=== PATIENT | female | born 1985 | race Caucasian/White ===

== ENCOUNTER 2018-01-23 11:26 | Emergency (ER) | payer OTHER ==
[2018-01-23 11:56] VITALS: BP 113/70; PULSE 82; TEMP 99.4; BMI 37.2
--- NOTE | 2018-01-23 12:41 | PDOC ---
History of Present Illness - General Chief Complaint: Back Pain Stated Complaint: BACK PAIN Time Seen by Provider: 01/23/18 12:22 History Source: Patient Exam Limitations: No Limitations - History of Present Illness Initial Comments: 01/23/18 13:03 32 yr female with c/o right flank pain for 2 days with painful urination. no fever no chills positive nausea, neg vomiting or diarrhea. Pt has history of kidney stones denies any trauma . Past History - Past Medical History Allergies/Adverse Reactions: Allergies Allergy/AdvReac Type Severity Reaction Status Date / Time No Known Allergies Allergy Verified 01/23/18 12:35 Home Medications: Ambulatory Orders Cyclobenzaprine HCl [Flexeril -] 10 mg PO TID PRN #15 tablet 01/23/18 Naproxen [Naprosyn] 500 mg PO BID PRN #14 tablet 01/23/18 COPD: No CHF: No Kidney Stones: Yes - Surgical History Abdominal Surgery: Yes (ovarian cyst removal, ) Cholecystectomy: No - Reproductive History (#): 2 Para: 1 Cervical CA: No Dysfunctional Uterine Bleeding: No Ectopic : No Endometrial CA: No Polycystic Ovaries: No Therapeutic (s) & number: No Tubal Ligation: No Spontaneous : 1 - Immunization History Td Vaccination: Yes Immunization Up to Date: Yes - Suicide/Smoking/Psychosocial Hx Smoking Status: No Smoking History: Never smoked Have you smoked in the past 12 months: No Number of Cigarettes Smoked Daily: 0 Information on smoking cessation initiated: No Hx Alcohol Use: No Drug/Substance Use Hx: No Substance Use Type: None Hx Substance Use Treatment: No Trauma Specific PMHX - Complaint Specific PMHX Back Injury: Yes Review of Systems - Review of Systems Able to Perform ROS?: Yes Is the patient limited Urdu proficient: Yes Constitutional: No: Symptoms Reported HEENTM: No: Symptoms Reported Respiratory: No: Symptoms reported Cardiac (ROS): No: Symptoms Reported ABD/GI: No: Symptoms Reported : Yes: Flank Pain *Physical Exam - Vital Signs Last Vital Signs Temp Pulse Resp BP Pulse Ox 99.4 F 82 18 113/70 98 01/23/18 11:53 01/23/18 11:53 01/23/18 11:53 01/23/18 11:53 01/23/18 11:53 - Physical Exam General Appearance: Yes: Nourished, Appropriately Dressed HEENT: positive: EOMI, SAY Neck: positive: Supple. negative: Tender Respiratory/Chest: positive: Lungs Clear, Normal Breath Sounds. negative: Chest Tender Cardiovascular: positive: Regular Rhythm, Regular Rate Gastrointestinal/Abdominal: positive: Normal Bowel Sounds, Soft, Other (obese ) . negative: Tender Musculoskeletal: positive: Normal Inspection Extremity: positive: Normal Capillary Refill, Normal Inspection, Normal Range of Motion Integumentary: positive: Normal Color, Dry, Warm Neurologic: positive: Fully Oriented, Alert, Normal Mood/Affect, Normal Response , Motor Strength 08/04 Medical Decision Making - Medical Decision Making 01/23/18 13:08 32 yr female with c/o pain to right flank area history of stone pt with painful urination no fever no nausea or vomiting will check UA toradol for pain 01/23/18 13:09 pt improved after toradol feels much better dc home with strict follow up inst all questions asked and answered 01/23/18 17:09 *DC/Admit/Observation/Transfer Diagnosis at time of Disposition: Back pain at L4-L5 level Cyst of ovary Qualifiers: Laterality: right Qualified Code(s): N83.201 - Unspecified ovarian cyst, right side - Discharge Dispostion Disposition: HOME Condition at time of disposition: Good - Prescriptions Prescriptions: Cyclobenzaprine HCl [Flexeril -] 10 mg PO TID PRN #15 tablet PRN Reason: Muscle Spasms Naproxen [Naprosyn] 500 mg PO BID PRN #14 tablet PRN Reason: Back Pain - Referrals Referrals: Chastity Barron MD [Primary Care Provider] - - Patient Instructions Printed Discharge Instructions: DI for Low Back Pain Additional Instructions: your cat scan was normal no sign of kidney stone please follow with your primary care doctor in 2-3 days if symptoms do not improve with the medication drink pleanty of fluids to stay hydrated return to ER if any worsening symptoms take the medications as prescribed for pain or muscle spasm Por favor, siga con meade mdico de atencin primaria en 2-3 drummond si los sntomas no mejoran con el medicamento. Beber abundantes lquidos para mantenerse hidratado. volver a la althea de emergencias si hay sntomas de empeoramiento pat los medicamentos segn lo prescrito para el dolor o espasmo muscular Meade escner de jocy fue normal, no hay signos de clculos renales Print Language: LAO - Post Discharge Activity Forms/Work/School Notes: Back to Work
[2018-01-23 12:48] LABS: HCG,QUALITATIVE URINE Negative
[2018-01-23] MEDS ORDERED: KETOROLAC TROMETHAMINE 60 MG/2 ML VIAL IM ONE (12:56)
[2018-01-23 12:59] LABS: URINE APPEARANCE SLCLOUDY; URINE BILIRUBIN NEGATIVE (<2.0 mg/dL); URINE COLOR YELLOW; URINE GLUCOSE (UA) NEGATIVE (NEGATIVE); URINE KETONE NEGATIVE (NEGATIVE); URINE LEUK ESTERASE NEGATIVE (NEGATIVE); URINE NITRITE NEGATIVE (NEGATIVE); URINE PROTEIN NEGATIVE (NEGATIVE); URINE UROBILINOGEN NEGATIVE mg/dL (0.2-1.0)
[2018-01-23] MEDS ORDERED: KETOROLAC TROMETHAMINE 60 MG/2 ML VIAL ONE (13:00)
[2018-01-23 13:11] LABS: EPI CELLS MANY /HPF (FEW); URINE MUCUS RARE
== END 2018-01-23 14:15 | disposition home or self-care (01) ==
LOC: JERFT 11:26 → JER 11:26 → JERFT 14:15
PROC: 3E0233Z Introduction of Anti-inflammatory into Muscle, Percutaneous Approach (ICD-10-PCS; principal; 2018-01-23)
DX: N83.201 Unspecified ovarian cyst, right side (principal); M54.5 Low back pain
CPT/HCPCS: 74176; 81003; 81015; 84703; 87086; 87186; 99281-25

== ENCOUNTER 2019-10-29 10:47 | Emergency (ER) | payer OTHER ==
[2019-10-29 10:51] VITALS: BP 120/73; PULSE 80; TEMP 98; BMI 33.6
[2019-10-29] MEDS ORDERED: KETOROLAC TROMETHAMINE 60 MG/2 ML VIAL IM ONE (11:35)
[2019-10-29] MEDS ORDERED: KETOROLAC TROMETHAMINE 60 MG/2 ML VIAL ONE (11:37)
--- NOTE | 2019-10-29 11:42 | PDOC ---
History of Present Illness - General Chief Complaint: Pain Stated Complaint: LOWER BACK PAIN Time Seen by Provider: 10/29/19 10:58 History Source: Patient - History of Present Illness Occurred: reports: other Severity: reports: moderate Pain Location: reports: back Past History - Medical History Allergies/Adverse Reactions: Allergies Allergy/AdvReac Type Severity Reaction Status Date / Time No Known Allergies Allergy Verified 10/29/19 10:51 Home Medications: Ambulatory Orders Cyclobenzaprine HCl [Flexeril -] 10 mg PO TID PRN #15 tablet 01/23/18 Naproxen [Naprosyn] 500 mg PO BID PRN #14 tablet 01/23/18 Nitrofurantoin Monohyd/M-Cryst [Macrobid -] 100 mg PO BID #14 capsule 01/27/18 Cyclobenzaprine HCl [Flexeril 10 mg] 10 mg PO HS #9 tablet 10/29/19 Ibuprofen [Motrin -] 800 mg PO QID #30 tablet 10/29/19 COPD: No CHF: No Kidney Stones: Yes - Surgical History Abdominal Surgery: Yes (ovarian cyst removal, ) Cholecystectomy: No - Reproductive History (#): 2 Para: 1 Cervical CA: No Dysfunctional Uterine Bleeding: No Ectopic : No Endometrial CA: No Polycystic Ovaries: No Therapeutic (s) & number: No Tubal Ligation: No Spontaneous : 1 - Immunization History Td Vaccination: Yes Immunization Up to Date: Yes - Psycho-Social/Smoking History Smoking Status: No Smoking History: Never smoked Have you smoked in the past 12 months: No Number of Cigarettes Smoked Daily: 0 - Substance Abuse Hx (Audit-C & DAST Scrn) How often the patient has a drink containing alcohol: Never Score: In Men: 4 or > Positive; In Women: 3 or > Positive: 0 Screen Result (Pos requires Nsg. Audit-10AR): Negative Trauma Specific PMHX - Complaint Specific PMHX Back Injury: Yes Review of Systems - Review of Systems Constitutional: No: Chills, Fever ABD/GI: No: Nausea, Vomiting, Abdominal cramping : No: Burning, Dysuria, Flank Pain, Hematuria Musculoskeletal: Yes: Back Pain Neurological: No: Numbness, Tingling, Weakness *Physical Exam - Vital Signs Last Vital Signs Temp Pulse Resp BP Pulse Ox 98 F 80 18 120/73 97 10/29/19 10:48 10/29/19 10:48 10/29/19 10:48 10/29/19 10:48 10/29/19 10:48 - Physical Exam General Appearance: Yes: Appropriately Dressed, Mild Distress HEENT: positive: Normal Voice Neck: positive: Supple Respiratory/Chest: negative: Respiratory Distress Gastrointestinal/Abdominal: positive: Soft. negative: Tender Musculoskeletal: positive: Vertebral Tenderness (to L lower back). negative: CVA Tenderness Extremity: positive: Normal Inspection Integumentary: positive: Dry, Warm Neurologic: positive: Fully Oriented, Alert, Normal Mood/Affect, Motor Strength 5/5, Other (able to bear weight) Medical Decision Making - Medical Decision Making 10/29/19 11:52 33 yo morbidly obesed female w. recurrent low bakc pain, here w/ same. Reports diffuse lower back pain radiating to L buttocks/thigh x 5 days, achy, 6/10, worse w/ certain movements. No sensory changes, LE weakness, saddle anesthesia or B/B incontinence. No sxs, n/v/f/c. Took tylenol w/ no relief. No recent or past trauma. No neuro imaging in past see exam Recurrent LBP No red flags at this time Dc w/ pain control PMD f/u Discharge - Discharge Information Problems reviewed: Yes Clinical Impression/Diagnosis: Low back pain Qualifiers: Chronicity: acute Back pain laterality: bilateral Sciatica presence: without sciatica Qualified Code(s): M54.5 - Low back pain Condition: Good Disposition: HOME - Additional Discharge Information Prescriptions: Cyclobenzaprine HCl [Flexeril 10 mg] 10 mg PO HS #9 tablet Ibuprofen [Motrin -] 800 mg PO QID #30 tablet - Follow up/Referral - Patient Discharge Instructions Patient Printed Discharge Instructions: Low Back Pain - Post Discharge Activity
== END 2019-10-29 11:51 | disposition home or self-care (01) ==
LOC: JERFT 10:47
PROC: 3E0333Z Introduction of Anti-inflammatory into Peripheral Vein, Percutaneous Approach (ICD-10-PCS; principal; 2019-10-29)
DX: M54.5 Low back pain (principal)
CPT/HCPCS: 99284-25

== ENCOUNTER 2020-02-09 01:08 | Emergency (ER) | payer OTHER ==
[2020-02-09 01:17] VITALS: TEMP 98.8; BMI 35.4
[2020-02-09] MEDS ORDERED: LACTATED RINGERS SOLUTION 1000 ML INFUS.BAG IV ONE (01:27)
[2020-02-09] MEDS ORDERED: METOCLOPRAMIDE HCL INJECTION 10 MG/2 ML VIAL IVPB ONE (01:27)
[2020-02-09] MEDS ORDERED: METOCLOPRAMIDE HCL INJECTION 10 MG/2 ML VIAL ONE (01:44)
[2020-02-09 02:18] LABS: BASO % 0.9 % (0-2.0); EOS % 0.7 % (0-4.5); HEMATOCRIT 36.9 % (32.4-45.2); HEMOGLOBIN 12.1 GM/dL (10.7-15.3); LYMPH % 26.9 % (8-40); MCH 24.9 pg (25.7-33.7); MCHC 32.7 g/dl (32.0-36.0); MEAN PLT VOLUME 7.5 fl (7.5-11.1); MONO % 4.4 % (3.8-10.2); NEUT % 67.1 % (42.8-82.8); PLATELET COUNT 429 K/MM3 (134-434); RBC 4.85 M/mm3 (3.60-5.2); RDW 16.5 % (11.6-15.6); WHITE BLOOD COUNT 10.3 K/mm3 (4.0-10.0)
[2020-02-09 02:31] LABS: CHLORIDE 106 mmol/L (98-107); POTASSIUM 4.4 mmol/L (3.5-5.1); SODIUM 137 mmol/L (136-145)
[2020-02-09 02:33] LABS: ALBUMIN 3.6 g/dl (3.4-5.0); ANION GAP 7 MMOL/L (8-16); CALCIUM 9.2 mg/dL (8.5-10.1); CO2 24 mmol/L (21-32)
[2020-02-09 02:34] LABS: BLOOD UREA NITROGEN 11.2 mg/dL (7-18); GLUCOSE,RANDOM 105 mg/dL (74-106)
[2020-02-09 02:36] LABS: SGOT/AST 20 U/L (15-37); SGPT/ALT 25 U/L (13-61)
[2020-02-09 02:37] LABS: CREATININE 0.6 mg/dL (0.55-1.3)
[2020-02-09 02:38] LABS: BILIRUBIN,TOTAL 0.3 mg/dL (0.2-1)
[2020-02-09 02:39] LABS: ALK PHOS 117 U/L (45-117)
[2020-02-09] MEDS ORDERED: KETOROLAC TROMETHAMINE 30 MG/1 ML VIAL IVPUSH ONE (02:47)
[2020-02-09] MEDS ORDERED: KETOROLAC TROMETHAMINE 15 MG/ML VIAL ONE (02:50)
[2020-02-09 03:33] VITALS: BP 118/70; PULSE 78
== END 2020-02-09 03:33 | disposition home or self-care (01) ==
LOC: JER 01:08
PROC: 3E0333Z Introduction of Anti-inflammatory into Peripheral Vein, Percutaneous Approach (ICD-10-PCS; principal; 2020-02-09)
PROC: 3E033GC Introduction of Other Therapeutic Substance into Peripheral Vein, Percutaneous Approach (ICD-10-PCS; 2020-02-09)
DX: G44.209 Tension-type headache, unspecified, not intractable (principal)
CPT/HCPCS: 36415; 71046-TC-FY; 80053; 82550; 84484; 84703; 85025; 93005; 93010; 99285-25

== ENCOUNTER 2022-02-02 04:31 | Emergency (ER) | payer OTHER ==
[2022-02-02 04:44] VITALS: BMI 35.4
[2022-02-02] MEDS ORDERED: ACETAMINOPHEN 1000 MG/100 ML BAG IVPB ONE (05:33)
[2022-02-02] MEDS ORDERED: ACETAMINOPHEN INJECTION 100 ML IVPB ONE (05:33)
[2022-02-02 05:52] LABS: BASO % 0.8 % (0-2.0); HEMATOCRIT 36.6 % (32.4-45.2); HEMOGLOBIN 11.8 GM/dL (10.7-15.3); LYMPH % 30.6 % (8-40); MCH 24.8 pg (25.7-33.7); MCHC 32.3 g/dl (32.0-36.0); MEAN CELL VOLUME 76.7 fl (80-96); MEAN PLT VOLUME 7.3 fl (7.5-11.1); NEUT % 61.6 % (42.8-82.8); PLATELET COUNT 409 10^3/uL (134-434); RBC 4.77 M/mm3 (3.60-5.2); RDW 16.3 % (11.6-15.6); WHITE BLOOD COUNT 8.7 K/mm3 (4.0-10.0)
[2022-02-02 06:04] LABS: EPI CELLS >36 /uL (0-25.1); HCG,QUALITATIVE URINE Negative; HYALINE CASTS 0 /uL (0-3.1); PH,URINE 5.5 (5.0-8.0); URINE APPEARANCE CLEAR; URINE BACTERIA 1470 /uL (0-1359); URINE BILIRUBIN NEGATIVE (NEGATIVE); URINE COLOR YELLOW; URINE GLUCOSE (UA) NEGATIVE (NEGATIVE); URINE KETONE NEGATIVE (NEGATIVE); URINE LEUK ESTERASE 3+ (NEGATIVE); URINE NITRITE NEGATIVE (NEGATIVE); URINE PROTEIN TRACE (NEGATIVE); URINE RBC 14 /uL (0-23.9); URINE UROBILINOGEN 0.2 mg/dL (0.2-1.0); URINE WBC 54 /uL (0-25.8)
[2022-02-02 06:13] LABS: CALCIUM 8.7 mg/dL (8.5-10.1)
[2022-02-02 06:15] LABS: ALBUMIN 3.1 g/dl (3.4-5.0); BLOOD UREA NITROGEN 11.7 mg/dL (7-18)
[2022-02-02 06:18] LABS: CREATININE 0.5 mg/dL (0.55-1.3)
[2022-02-02 06:19] LABS: BILIRUBIN,TOTAL 0.2 mg/dL (0.2-1); TOT PROT 6.8 g/dl (6.4-8.2)
[2022-02-02] MEDS ORDERED: KETOROLAC TROMETHAMINE 30 MG/1 ML VIAL IVPUSH ONE (11:31)
[2022-02-02] MEDS ORDERED: KETOROLAC TROMETHAMINE 30 MG/1 ML VIAL ONE (11:37)
[2022-02-02 12:05] VITALS: BP 110/68; PULSE 78; RESP 18; TEMP 98.6
== END 2022-02-02 12:05 | disposition home or self-care (01) ==
LOC: JER 04:31
PROC: 3E033GC Introduction of Other Therapeutic Substance into Peripheral Vein, Percutaneous Approach (ICD-10-PCS; principal; 2022-02-02)
DX: R10.2 Pelvic and perineal pain (principal)
CPT/HCPCS: 36415; 76830-TC; 80053; 81003; 83690; 83735; 84703; 85025; 87086; 99284-25; C9803-CS; U0003; U0005

== ENCOUNTER 2022-05-18 10:30 | Emergency (ER) | payer OTHER ==
[2022-05-18 10:45] VITALS: TEMP 97.9; BMI 33.6
[2022-05-18 12:57] LABS: HEMATOCRIT 32.1 % (32.4-45.2); HEMOGLOBIN 10.6 GM/dL (10.7-15.3); MCHC 32.9 g/dl (32.0-36.0); MEAN CELL VOLUME 76.2 fl (80-96); MEAN PLT VOLUME 6.9 fl (7.5-11.1); PLATELET COUNT 453 10^3/uL (134-434); RBC 4.21 M/mm3 (3.60-5.2); RDW 17.2 % (11.6-15.6); WHITE BLOOD COUNT 10.5 K/mm3 (4.0-10.0)
[2022-05-18 13:00] LABS: INR 1.18 (0.83-1.09); PROTHROMBIN TIME (PATIENT) 13.7 SEC (9.7-13.0)
[2022-05-18 13:11] LABS: CHLORIDE 104 mmol/L (98-107); SODIUM 136 mmol/L (136-145)
[2022-05-18 13:15] LABS: CALCIUM 9.2 mg/dL (8.5-10.1)
[2022-05-18 13:16] LABS: ALBUMIN 3.4 g/dl (3.4-5.0); ANION GAP 6 MMOL/L (8-16); BLOOD UREA NITROGEN 11.8 mg/dL (7-18); CO2 26 mmol/L (21-32); GLUCOSE,RANDOM 86 mg/dL (74-106)
[2022-05-18 13:20] LABS: CREATININE 0.6 mg/dL (0.55-1.3); SGOT/AST 14 U/L (15-37); SGPT/ALT 27 U/L (13-61)
[2022-05-18 13:21] LABS: BILIRUBIN,TOTAL 0.5 mg/dL (0.2-1); TOT PROT 7.6 g/dl (6.4-8.2)
[2022-05-18 13:22] LABS: ALK PHOS 98 U/L (45-117)
[2022-05-18 13:25] LABS: EPI CELLS 13 /uL (0-25.1); HYALINE CASTS 0 /uL (0-3.1); URINE APPEARANCE CLEAR; URINE BACTERIA 91 /uL (0-1359); URINE BILIRUBIN NEGATIVE (NEGATIVE); URINE COLOR YELLOW; URINE GLUCOSE (UA) NEGATIVE (NEGATIVE); URINE KETONE TRACE (NEGATIVE); URINE LEUK ESTERASE NEGATIVE (NEGATIVE); URINE NITRITE NEGATIVE (NEGATIVE); URINE PROTEIN 1+ (NEGATIVE); URINE RBC 650 /uL (0-23.9); URINE UROBILINOGEN 0.2 mg/dL (0.2-1.0); URINE WBC 19 /uL (0-25.8)
[2022-05-18 14:57] VITALS: BP 133/75; PULSE 78; RESP 19
== END 2022-05-18 14:57 | disposition home or self-care (01) ==
LOC: JER 10:30
DX: N93.8 Other specified abnormal uterine and vaginal bleeding (principal)
CPT/HCPCS: 36415; 80053; 81003; 84702; 84703; 85027; 85610; 86850; 86900; 86901; 87086; 99283-25

== ENCOUNTER 2022-12-12 05:07 | Day surgery (SDC) | payer OTHER ==
[2022-12-07 15:32] VITALS: BMI 42.9
[2022-12-12 12:27] VITALS: TEMP 98.4
[2022-12-12 12:35] VITALS: RESP 21
[2022-12-12 12:52] VITALS: BP 131/81; PULSE 62
== END 2022-12-12 12:49 | disposition home or self-care (01) ==
LOC: JASU-ENDO 05:07
PROVIDERS: ATTEND Student in an Organized Health Care Education/Training Program
PROC: 0DB78ZX Excision of Stomach, Pylorus, Via Natural or Artificial Opening Endoscopic, Diagnostic (ICD-10-PCS; 2022-12-12)
PROC: 0DB68ZX Excision of Stomach, Via Natural or Artificial Opening Endoscopic, Diagnostic (ICD-10-PCS; principal; 2022-12-12 11:00)
DX: K29.50 Unspecified chronic gastritis without bleeding (principal); B96.81 Helicobacter pylori [H. pylori] as the cause of diseases classified elsewhere; K22.89 Other specified disease of esophagus; K31.89 Other diseases of stomach and duodenum
CPT/HCPCS: 81025; 88305-TC; 88342-TC